=== PATIENT | female | born 1940 | race Caucasian/White ===

== ENCOUNTER 2016-12-16 12:41 | Inpatient (IN) | payer OTHER ==
[~2016-12-16] VITALS: Ht 167.6 cm; Wt 112.6 kg
--- NOTE | ~2016-12-16 | HC ---
[facility] [address] [place] [address] CONSULTATION Name: FABYDARRELLPEACEDENNISShantel Lloyd Room #: 206-P ADM IN M.R.#: [id number] Admission: 12/16/16 Attend Phys: Rae Reyes MD Discharge: Date of : 40 Report #: [id number] THIS REPORT FOR: //name// CC: Dionte Reyes REASON FOR CONSULTATION: I was asked to evaluate concerning bilateral lower extremity cellulitis. HISTORY OF PRESENT ILLNESS: The patient is a 76-year-old transferred from [facility] because of lower extremity cellulitis that was not improving. She has been on Bactrim, she states for about 3 weeks because of persistent lower extremity redness and tenderness. She has had significant edema. She has known peripheral vascular disease. Bilateral venous Dopplers were negative for DVT. The patient denied any fever, chills, or sweats. She has had some increased shortness of breath without cough or sputum production. ALLERGIES: FENTANYL, TRAZODONE, GABAPENTIN, STADOL, NUBAIN, DARVOCET, ULTRAM, and CODEINE. MEDICATIONS: As noted on her MAR, which were reviewed. PAST MEDICAL HISTORY: Cholecystectomy, hysterectomy, appendectomy, IBS, hyperkalemia, fibrocystic breast disease, coronary artery disease, status post stenting; right knee surgery, vertebral compression fracture, gastroesophageal reflux, degenerative arthritis, depression, anxiety, fibromyalgia, TIA, stroke, COPD, migraine headaches, osteoporosis, diabetes, bilateral lower extremity stents, cataracts, and pneumonia. FAMILY HISTORY: Noncontributory. SOCIAL HISTORY: Past smoker. No significant alcohol intake. REVIEW OF SYSTEMS: Noted above with no GI or complaints. PHYSICAL EXAMINATION: VITAL SIGNS: Afebrile, hemodynamically stable, alert, cooperative and pleasant, in no acute distress. Oxygen saturation adequate on 2 liters. HEENT: Unremarkable. LUNGS: Clear. HEART: Regular. ABDOMEN: Soft, nontender, no hepatosplenomegaly or mass. Moderately obese. EXTREMITIES: 2+ lower extremity edema in the right, 1+ on the left with venous stasis dermatitis changes. LABORATORY STUDIES: Chest x-ray pending. Arterial and venous Doppler studies pending. [address] [address] CONSULTATION Name: LENNY HOBBS Prema Room #: 206-P [facility] IN [facility]#: [id number] Admission: 12/16/16 Attend Phys: Rae Reyes MD Discharge: Date of : 40 Report #: [id number] IMPRESSION: A 76-year-old with underlying coronary artery disease, peripheral vascular disease and chronic lower extremity edema, which has worsened and now has venous stasis dermatitis changes. I do not think we are dealing with a significant cellulitis issue. Recommend elevation of her feet along with diuretics and we will treat for short course with Keflex along with topical corticosteroids and emollients. Interventional radiology is to evaluate her stents and venous studies. <ELECTRONICALLY SIGNED> By: Figueroa Pagan MD 12/18/16 1008 [id number] Figueroa Pagan MD /nt
[2016-12-16 12:20] VITALS: BP 153/61
[~2016-12-16 12:41] MED LIST: ADULT LOW DOSE81 MG PO; ALBUTEROL INH; ALLOPURINOL 10100 M2 PO; AMBIEN 10 MG TA10 MG PO; ARICEPT 5 MG TAB5 MG PO; BENTYL 10 MG CA10 M1 PO; CARISOPRODOL 3350 MG PO; CELEXA 20 MG TA20 M1 PO; CILOSTAZOL 100100 MG PO; DEMEROL50 MG PO; DITROPAN XL10 M1 PO; ENDOCET 7.5-321 EACH PO; FIBERCON CHEWA625 MG PO; FLONASE; GLUCOPHAGE500 MG PO; KLOR-CON 1010 MEQ PO; LASIX 20 MG TAB20 MG PO; LISINOPRIL5 MG PO; LYRICA 50 MG50 MG PO; NORVASC10 MG PO; NYSTATIN 100,0015 G1 TP; PLAVIX 75 MG TA75 MG PO; PLETAL PO; PROTONIX40 M2 PO; REMERON 30 MG T30 M1 PO; TUSSIN COU10 MG/5 ML PO; VYTORIN 10-201 EACH PO; XANAX PO
[2016-12-16 16:23] VITALS: BP 131/64
[2016-12-16 20:17] VITALS: BP 131/61
[2016-12-17] VITALS (7 sets, daily range): BP systolic 83–162; BP diastolic 53–91
[2016-12-17 03:57] LABS: PROTIME 10.7 Seconds (9.3-11.4)
[2016-12-17 04:46] LABS: ALBUMIN 2.6 g/dL (3.4-5.0); CALCIUM 8.8 mg/dL (8.5-10.1); CREATININE 1.7 mg/dL (0.6-1.0); MAGNESIUM 1.9 mg/dL (1.8-2.4); POTASSIUM 4.7 mmol/L (3.5-5.1); TOTAL BILIRUBIN 0.3 mg/dL (<0.1-1.0); TOTAL PROTEIN 6.6 g/dL (6.4-8.2)
[2016-12-17 05:25] LABS: EOSINOPHILS 1.1 % (0.0-3.0)
[2016-12-17 05:28] LABS: ABSOLUTE NEUTROPHILS 4.3 thou/uL (1.4-8.2); BASOPHILS 0.5 % (0.0-2.0); HEMATOCRIT 31.9 % (37.0-47.0); HEMOGLOBIN 10.1 gm/dL (12.0-15.0); MCH 24.1 pg (26.0-34.0); MCHC 31.5 g/dL (28.0-37.0); MCV 76.5 fL (80.0-100.0); MONOCYTES 9.5 % (1.0-8.0); PLATELET COUNT 286 thou/uL (150-400); POLYS 53.9 % (36.0-66.0); RBC 4.18 mil/uL (4.20-5.00); RDW 20.9 % (10.5-14.5)
[2016-12-17 06:02] LABS: MANUAL DIFF NO
[2016-12-18 03:09] VITALS: BP 118/50
[2016-12-18 08:00] VITALS: BP 146/72
[2016-12-18] MEDS ORDERED: CEPHALEXIN 500500 M3 PO (09:48)
[2016-12-18 12:00] VITALS: BP 160/66
[2016-12-18 13:20] VITALS: BP 138/68; BP 146/72
[2016-12-18] MEDS ORDERED: KEFLEX500 MG PO ×2 (13:55→13:56)
== END 2016-12-18 17:38 | disposition home health service (06) | DRG 603 ==
LOC: 2N 12:41
PROVIDERS: Nurse Practitioner
DX: L03.116 Cellulitis of left lower limb (principal); N17.9 Acute kidney failure, unspecified; K58.9 Irritable bowel syndrome, unspecified; E87.5 Hyperkalemia; I25.10 Atherosclerotic heart disease of native coronary artery without angina pectoris; Z96.651 Presence of right artificial knee joint; K21.9 Gastro-esophageal reflux disease without esophagitis; M19.90 Unspecified osteoarthritis, unspecified site; L03.115 Cellulitis of right lower limb; F32.9 Major depressive disorder, single episode, unspecified; F41.9 Anxiety disorder, unspecified; J44.9 Chronic obstructive pulmonary disease, unspecified; M81.0 Age-related osteoporosis without current pathological fracture; I87.2 Venous insufficiency (chronic) (peripheral); I65.29 Occlusion and stenosis of unspecified carotid artery; G43.909 Migraine, unspecified, not intractable, without status migrainosus; E11.51 Type 2 diabetes mellitus with diabetic peripheral angiopathy without gangrene; I10 Essential (primary) hypertension; M10.9 Gout, unspecified; Z88.6 Allergy status to analgesic agent; Z90.49 Acquired absence of other specified parts of digestive tract; Z90.710 Acquired absence of both cervix and uterus; Z79.82 Long term (current) use of aspirin; Z79.899 Other long term (current) drug therapy; Z95.5 Presence of coronary angioplasty implant and graft; Z99.81 Dependence on supplemental oxygen; Z86.73 Personal history of transient ischemic attack (TIA), and cerebral infarction without residual deficits; Z98.49 Cataract extraction status, unspecified eye; Z87.891 Personal history of nicotine dependence; Z88.8 Allergy status to other drugs, medicaments and biological substances; Z82.49 Family history of ischemic heart disease and other diseases of the circulatory system; Z80.9 Family history of malignant neoplasm, unspecified; Z82.3 Family history of stroke
CPT/HCPCS: 10081

== ENCOUNTER → 2016-12-30 | Outpatient (CLI) | payer OTHER ==
[~2016-12-30] MED LIST changes: +CEPHALEXIN 500500 M3 PO; +KEFLEX500 MG PO
== END ==
LOC: HYPER 07:07
DX: L03.115 Cellulitis of right lower limb (principal); L03.116 Cellulitis of left lower limb; I25.10 Atherosclerotic heart disease of native coronary artery without angina pectoris; I10 Essential (primary) hypertension; E66.9 Obesity, unspecified; K21.9 Gastro-esophageal reflux disease without esophagitis; E11.51 Type 2 diabetes mellitus with diabetic peripheral angiopathy without gangrene; F41.9 Anxiety disorder, unspecified; Z86.73 Personal history of transient ischemic attack (TIA), and cerebral infarction without residual deficits; Z90.710 Acquired absence of both cervix and uterus; Z87.891 Personal history of nicotine dependence; Z68.39 Body mass index [BMI] 39.0-39.9, adult

== ENCOUNTER → 2017-01-27 | Outpatient (CLI) | payer OTHER | LOC: HYPER 01-13 15:46 | DX: L03.115 Cellulitis of right lower limb (principal); L03.116 Cellulitis of left lower limb; I25.10 Atherosclerotic heart disease of native coronary artery without angina pectoris; I10 Essential (primary) hypertension; E66.9 Obesity, unspecified; E11.51 Type 2 diabetes mellitus with diabetic peripheral angiopathy without gangrene; K21.9 Gastro-esophageal reflux disease without esophagitis; F41.9 Anxiety disorder, unspecified; Z86.73 Personal history of transient ischemic attack (TIA), and cerebral infarction without residual deficits; Z87.891 Personal history of nicotine dependence; Z90.710 Acquired absence of both cervix and uterus ==

== ENCOUNTER → 2017-04-05 | Outpatient (CLI) | payer OTHER | LOC: HYPER 02-10 09:21 | DX: L03.115 Cellulitis of right lower limb (principal); L03.116 Cellulitis of left lower limb; I73.9 Peripheral vascular disease, unspecified; I25.10 Atherosclerotic heart disease of native coronary artery without angina pectoris; I10 Essential (primary) hypertension; E66.9 Obesity, unspecified; F03.90 Unspecified dementia, unspecified severity, without behavioral disturbance, psychotic disturbance, mood disturbance, and anxiety; K21.9 Gastro-esophageal reflux disease without esophagitis; F41.9 Anxiety disorder, unspecified; Z86.73 Personal history of transient ischemic attack (TIA), and cerebral infarction without residual deficits; Z90.710 Acquired absence of both cervix and uterus; Z87.891 Personal history of nicotine dependence ==

== ENCOUNTER → 2017-04-28 | Outpatient (CLI) | payer OTHER | LOC: HYPER 04-19 06:58 | DX: L03.115 Cellulitis of right lower limb (principal); L03.116 Cellulitis of left lower limb; I25.10 Atherosclerotic heart disease of native coronary artery without angina pectoris; I10 Essential (primary) hypertension; E66.9 Obesity, unspecified; E11.51 Type 2 diabetes mellitus with diabetic peripheral angiopathy without gangrene; K21.9 Gastro-esophageal reflux disease without esophagitis; F41.9 Anxiety disorder, unspecified; Z86.73 Personal history of transient ischemic attack (TIA), and cerebral infarction without residual deficits; Z90.710 Acquired absence of both cervix and uterus; Z87.891 Personal history of nicotine dependence; Z68.39 Body mass index [BMI] 39.0-39.9, adult ==

== ENCOUNTER → 2018-03-21 | Outpatient (CLI) | payer OTHER | LOC: HYPER 06:56 | DX: L03.115 Cellulitis of right lower limb (principal); I89.0 Lymphedema, not elsewhere classified; I25.10 Atherosclerotic heart disease of native coronary artery without angina pectoris; E66.09 Other obesity due to excess calories; I10 Essential (primary) hypertension; K21.9 Gastro-esophageal reflux disease without esophagitis; F41.9 Anxiety disorder, unspecified; E11.51 Type 2 diabetes mellitus with diabetic peripheral angiopathy without gangrene; Z86.73 Personal history of transient ischemic attack (TIA), and cerebral infarction without residual deficits; Z90.710 Acquired absence of both cervix and uterus; Z68.38 Body mass index [BMI] 38.0-38.9, adult; Z87.891 Personal history of nicotine dependence ==

== ENCOUNTER → 2018-03-31 | Outpatient (CLI) | payer OTHER | LOC: HYPER 06:44 | DX: L03.115 Cellulitis of right lower limb (principal); E11.51 Type 2 diabetes mellitus with diabetic peripheral angiopathy without gangrene; I89.0 Lymphedema, not elsewhere classified; E66.09 Other obesity due to excess calories; I25.10 Atherosclerotic heart disease of native coronary artery without angina pectoris; I10 Essential (primary) hypertension; K21.9 Gastro-esophageal reflux disease without esophagitis; F41.9 Anxiety disorder, unspecified; Z86.73 Personal history of transient ischemic attack (TIA), and cerebral infarction without residual deficits; Z90.710 Acquired absence of both cervix and uterus; Z87.891 Personal history of nicotine dependence; Z68.38 Body mass index [BMI] 38.0-38.9, adult ==